=== PATIENT | female | born 1955 | race Caucasian/White ===

== ENCOUNTER 2017-11-27 15:12 | Inpatient (IN) | payer SELFPAY ==
[~2017-11-27 15:12] MED LIST: Iopamidol 370 76% 100 ML VIAL ONE; Iopamidol 370 76% 50 ML VIAL FS ONE
[2017-11-27] MEDS ORDERED: Lidocaine 1% (PF) 30 ML VIAL ONE (15:36)
[2017-11-27] MEDS ORDERED: Heparin 10,000 UNITS/1 ML VIAL ONE ×2 (15:36→16:48)
[2017-11-27 15:38] LABS: #Eosinphils 0.1 thou/uL (0.0-0.7); #Lymphocytes 1.7 thou/uL (1.20-3.40); #Monocytes 0.4 thou/uL (0.11-0.59); #Neutrophils 3.5 thou/uL (1.40-6.50); %Basophils 0.5 % (0.0-1.0); %Eosinophils 1.3 % (0.0-10.0); %Lymphocytes 29.7 % (21.0-51.0); %Neutrophils 61.5 % (42.0-75.0); Hemoglobin 12.4 g/dL (12.0-16.0); Mean Corpuscular HGB CONC 35.2 g/dL (32.0-36.0); Mean Corpuscular Volume 93.9 fL (78.0-98.0); Mean Platelet Volume 7.6 fL (7.4-10.4); Platelet Count 247 thou/uL (130-400); RBC Distribution Width 13.2 % (11.5-14.5); Red Blood Cell (RBC) Count 3.77 mill/uL (4.20-5.40); White Blood Cell (WBC) Count 5.7 thou/uL (4.8-10.8)
--- NOTE | 2017-11-27 15:46 | RAD ---
PORTABLE CHEST: Date: 11/27/17 HISTORY: Chest pain. FINDINGS: Lungs appear clear. No infiltrate or vascular congestion. Heart size upper normal. MediPort catheter appears in adequate position. Overlying defibrillation pads obscure detail. IMPRESSION: No acute process identified. POS: [facility]
[2017-11-27 15:57] LABS: ALT (SGPT) 22 U/L (8-55); AST (SGOT) 20 U/L (5-34); Albumin 4.1 g/dL (3.4-4.8); Alkaline Phosphatase 53 U/L (40-150); Anion Gap 17 mmol/L (10-20); BUN (Urea Nitrogen) 16 mg/dL (9.8-20.1); Bilirubin, Total 0.4 mg/dL (0.2-1.2); Calc. Creatinine Clearance 0 mL/min (70-130); Carbon Dioxide 21 mmol/L (23-31); Chloride 104 mmol/L (98-107); Estimated GFR-MDRD 54; Globulin 3.4 g/dL (2.4-3.5); Glucose 398 mg/dL (80-115); Potassium 4.2 mmol/L (3.5-5.1); Protein, Total 7.5 g/dL (6.0-8.3); Sodium 138 mmol/L (136-145)
[2017-11-27 16:01] LABS: CKMB 3.2 ng/mL (0-6.6); Troponin I 0.267 ng/mL (< 0.028)
[2017-11-27] MEDS ORDERED: Nitroglycerin 100MG/250ML BOT 250 ML ONE (16:08)
[2017-11-27] MEDS ORDERED: Clopidogrel Bisulfate 300 MG TAB ONE (16:24)
[2017-11-27] MEDS ORDERED: Fentanyl 100 MCG/2 ML VIAL ONE (16:25)
[2017-11-27] MEDS ORDERED: Sodium Chloride 0.9% 1,000 ML BAG ONE (17:00)
[2017-11-27] MEDS ORDERED: Metoprolol Tartrate 5 MG/5 ML VIAL ONE (17:00)
[2017-11-27] MEDS ORDERED: Heparin 10,000 UNITS/ 10 ML VIAL ONE (17:00)
[2017-11-27] MEDS ORDERED: Nitroglycerin 0.4 MG TAB (25 Tab Bottle) ONE (17:00)
[2017-11-27] MEDS ORDERED: Zolpidem Tartrate 5 MG TAB PO PRN (17:04)
[2017-11-27] MEDS ORDERED: Nitroglycerin 0.4 MG TAB (25 Tab Bottle) SL PRN (17:04)
[2017-11-27] MEDS ORDERED: Sodium Chloride 0.9% 1,000 ML IV SCH (17:15)
[2017-11-27] MEDS ORDERED: Morphine 4 MG/ML VIAL ONE (17:20)
--- NOTE | 2017-11-27 17:52 | RAD ---
ONE VIEW CHEST: 11/27/17 HISTORY: Status post interventional cardiology. COMPARISON: None. FINDINGS: Portable supine chest demonstrates a left sided Mediport catheter with the distal tip projecting over the superior vena cava. Normal cardiac silhouette. Lungs are clear of any masses or consolidation. N o pleural effusion. No pneumothorax on the supine projection. IMPRESSION: No acute cardiopulmonary process. POS: [facility]
[2017-11-27 20:12] VITALS: BMI 37.5
[2017-11-27] MEDS: Carvedilol 6.25 MG TAB PO SCH (20:22)
[2017-11-27 21:46] LABS: CKMB 16.1 ng/mL (0-6.6); Troponin I 1.488 ng/mL (< 0.028)
--- NOTE | 2017-11-27 23:21 | CCL ---
INDICATION: Inferior STEMI. PROCEDURE: 1. Left heart catheterization. 2. Selective coronary arteriography. 3. Left ventriculography. 4. Stent placement in the proximal and the distal right coronary artery. 5. Intracoronary nitroglycerine. The patient was brought from the emergency room. The right groin was prepped and draped in usual fashion. 1% lidocaine was infiltrated. A 6-Bulgarian sheath placed into the right femoral artery. ACTs were checked during the procedure with the patient given 4000 and an additional 3000 units of heparin to maintain ACT greater than 300. Fentanyl 25 mg given intravenously during the case. A 6- Bulgarian Satnam left 4 was used for left coronary arteriography. A 6-Bulgarian right 4 guide catheter was inserted for right coronary arteriography. It was felt that the right 4 might not provide adequate backup and this was removed and a 6-Bulgarian Satnam right one was inserted. This also did not engage well and the decision was made to go back to the 6-Bulgarian right 4 guide catheter. A floppy choice wire was advanced to the distal right coronary artery. There area was predilated with Emerge 3.0 x 15 mm balloon. After the predilatation, there appeared to be a dissection and then there was total occlusion of the vessel. Rebel 3.0 x 24 mm stent was then positioned and deployed with excellent result with taoism of flow and sealing of the dissection. Attention was then turned to the proximal right coronary artery and Rebel 3.5 x 12 mm stent was positioned and deployed. The decision was made to place bare metal stents since patient would need bypass surgery rather than placing a drug eluting stent as the patient and I had previously discussed. The guide catheter was removed. 6-Bulgarian Satnam angulated pigtail was inserted and pressures were obtained. Left ventriculogram was performed using 30 mL of contrast at 12 mL per second in an NELSON 30 degree projection. Pressure obtained and pigtail was removed. Sheath sutured in place and she was transferred to the PACU. RESULTS: PRESSURES: Aorta 145/77, mean 116, left ventricle 160/10. CORONARY ARTERIOGRAPHY: 1. Left main was normal. 2. The LAD had a 70% long proximal stenosis. 3. The circumflex had a 50% mid stenosis and then a 70% stenosis in the large second obtuse marginal. 4. The right coronary artery had a 70% proximal and a 95% distal stenosis. INTERVENTION RESULTS: The initial distal lesion was 95%. Final lesion was 0%. The initial proximal lesion was 70%. Final lesion was 0%. LEFT VENTRICULOGRAM: There was inferior akinesis with ejection fraction of 35-40%. IMPRESSION: 1. Three-vessel coronary artery disease. 2. Successful bare metal stent placement in the proximal and distal right coronary artery. 3. Moderate left ventricular dysfunction. MTDD
[2017-11-28 04:07] LABS: ALT (SGPT) 20 U/L (8-55); AST (SGOT) 29 U/L (5-34); Albumin 3.5 g/dL (3.4-4.8); Alkaline Phosphatase 43 U/L (40-150); Anion Gap 14 mmol/L (10-20); BUN (Urea Nitrogen) 14 mg/dL (9.8-20.1); Bilirubin, Total 0.2 mg/dL (0.2-1.2); Calc. Creatinine Clearance 115 mL/min (70-130); Calcium 8.3 mg/dL (7.8-10.44); Carbon Dioxide 20 mmol/L (23-31); Cardiac Risk 3.7 (Less than 4.5); Chloride 109 mmol/L (98-107); Cholesterol 236 mg/dl (< 200 Desired); Estimated GFR-MDRD 75; Globulin 2.8 g/dL (2.4-3.5); Glucose 302 mg/dL (80-115); HDL Cholesterol 64 mg/dL (>60 Neg Risk); LDL Cholesterol, Calculated 128 mg/dL; Potassium 3.9 mmol/L (3.5-5.1); Protein, Total 6.3 g/dL (6.0-8.3); Sodium 139 mmol/L (136-145); Triglycerides 219 mg/dL (Less than 150)
[2017-11-28 04:16] LABS: CKMB 24.8 ng/mL (0-6.6)
[2017-11-28 04:45] LABS: #Basophils 0.1 thou/uL (0.0-0.2); #Eosinphils 0.1 thou/uL (0.0-0.7); #Lymphocytes 1.1 thou/uL (1.20-3.40); #Monocytes 0.3 thou/uL (0.11-0.59); #Neutrophils 3.2 thou/uL (1.40-6.50); %Basophils 1.4 % (0.0-1.0); %Eosinophils 1.2 % (0.0-10.0); %Lymphocytes 23.7 % (21.0-51.0); %Monocytes 6.3 % (0.0-10.0); %Neutrophils 67.5 % (42.0-75.0); Hemoglobin 10.8 g/dL (12.0-16.0); Mean Corpuscular Hemoglobin 32.2 pg (27.0-31.0); Mean Corpuscular Volume 94.7 fL (78.0-98.0); Mean Platelet Volume 7.5 fL (7.4-10.4); Platelet Count 219 thou/uL (130-400); RBC Distribution Width 13.2 % (11.5-14.5); Red Blood Cell (RBC) Count 3.36 mill/uL (4.20-5.40); White Blood Cell (WBC) Count 4.8 thou/uL (4.8-10.8)
[2017-11-28] MEDS ORDERED: Dextrose 50% Abboject 50 ML SYRINGE IVP PRN (06:41)
[2017-11-28] MEDS ORDERED: Dextrose 5% in Water 1,000 ML IV PRN (06:41)
--- NOTE | 2017-11-28 07:09 | HP ---
DATE OF CONSULTATION: 11/27/2017 HISTORY OF PRESENT ILLNESS: Keke Patel is a 62-year-old white female, who denies any previous cardiac problems. She has undergone Cardiolites here at [place] in 04/2003 and 12/2009 that were normal. Over the last 3 or 4 days, she states she has been having increasing episodes of chest discomfort. Today, she had an episode approximately 30 minutes before arriving to the emergency room, which she stated was much more severe in nature and did not resolve. She had mild shortness of breath, no nausea or vomiting or diaphoresis. PAST MEDICAL HISTORY: Hypertension, diabetes, and hypercholesterolemia. MEDICATIONS: Unknown at this time. ALLERGIES: CELEBREX causes elevation of liver function test. 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 SOCIAL HISTORY: She smoked 1/2 to 3/4 packs per day, but stopped 1 month ago. She rarely drinks. FAMILY HISTORY: Her father was Imtiaz Ceja that I took care with CABG as well as stent placement and defibrillator. Also, her brother has had CABG. REVIEW OF SYSTEMS: A 12-point review of systems otherwise unremarkable. PHYSICAL EXAMINATION: VITAL SIGNS: Blood pressure 160/92, pulse of 90. HEENT: PERRL. NECK: Supple. CHEST: Clear. CARDIAC: S1, S2 normal, without any S3, S4 or murmurs. Carotid upstrokes are normal without bruits. ABDOMEN: Normal bowel sounds, without tenderness, organomegaly. The abdomen is obese. EXTREMITIES: Revealed no clubbing, cyanosis or edema. NEUROLOGIC: Grossly intact. SKIN: Warm and dry. LABORATORY DATA AND IMAGING: EKG revealed [address]-segment elevation in II, III and F along with reciprocal changes in 1 and aVL. Hemoglobin 12.4, hematocrit 35.4, white count 5700, platelets 247,000. No other blood work is available. IMPRESSION: 1. Acute inferior ST-segment elevation myocardial infarction. 2. Acute coronary syndrome over the last 3-4 days. 3. Hypertension. 4. Diabetes. 5. Hypercholesterolemia. 6. Smoker until 1 month ago. 7. Positive family history. PLAN: The situation was discussed with the patient. It was recommended that she undergo an emergent catheterization. Risks of this were discussed including , myocardial infarction, dye reaction, vascular injury, CVA, transfusion, limb loss, renal loss, etc. Risks of stent placement were discussed including , myocardial infarction, emergent CABG, restenosis, stent thrombosis, vessel perforation, etc. She denies any other gastrointestinal bleeding when she had squamous cell carcinoma of the anus. She denies any history of stroke and does not have any upcoming surgical procedures. A drug-eluting stent will be placed if needed. LESLYE
[2017-11-28] MEDS: Clopidogrel Bisulfate 75 MG TAB PO SCH (10:16)
[2017-11-28] MEDS: Carvedilol 6.25 MG TAB PO SCH ×2 (10:20→20:20)
[2017-11-28] MEDS: Lisinopril 2.5 MG TAB PO SCH (10:38)
[2017-11-28 12:21] LABS: Critical Call CKMBM RESULT DECREASING; Critical Call Chem Troponin I RESULT DECREASING
--- NOTE | 2017-11-28 15:14 | PDOC.PN ---
- Subjective Encounter Start Date: 11/28/17 Encounter Start Time: 15:13 Subjective: pt seen and examined. S/P Cath w RCA stenting X2. -: IM team consulted for medical management -: denies nay CP/SOB/edema.no N/V/D - Objective MAR Reviewed: Yes Vital Signs & Weight: Vital Signs (12 hours) Temp Pulse Pulse Pulse Resp BP BP 11/28/17 10:42 77 19 11/28/17 10:38 118/64 11/28/17 10:25 74 69 118/64 11/28/17 10:20 118/64 11/28/17 09:00 98.5 F 11/28/17 08:00 98.2 F 67 22 H 11/28/17 04:00 98.2 F BP Pulse Ox Pulse Ox 11/28/17 10:42 99 11/28/17 10:38 11/28/17 10:25 122/58 L 99 11/28/17 10:20 11/28/17 09:00 11/28/17 08:00 98 11/28/17 04:00 Most Recent Monitor Data Heart Rate from ECG 63 NIBP 118/64 NIBP BP-Mean 89 Respiration from ECG 21 SpO2 100 I&O: 11/27/17 11/28/17 11/29/17 06:59 06:59 06:59 Intake Total 1588 850 Output Total 1150 300 Balance 438 550 Result Diagrams: 11/28/17 04:31 11/28/17 03:36 Additional Labs: Laboratory Tests 11/27/17 11/27/17 11/28/17 15:33 21:00 03:36 Troponin I 0.267 H 1.488 H* Triglycerides 219 H Cholesterol 236 H LDL Cholesterol, Calc 128 HDL Cholesterol 64 11/28/17 03:36 Troponin I 3.160 H* Triglycerides Cholesterol LDL Cholesterol, Calc HDL Cholesterol labs reviewed Phys Exam - Physical Examination Constitutional: NAD HEENT: PERRLA, moist MMs, sclera anicteric, oral pharynx no lesions Neck: no nodes, no JVD, supple, full ROM Respiratory: no wheezing, no rales, no rhonchi, clear to auscultation bilateral Cardiovascular: RRR, no significant murmur, no rub Gastrointestinal: soft, non-tender, no distention, positive bowel sounds Musculoskeletal: no edema, pulses present Neurological: non-focal, normal sensation, moves all 4 limbs Psychiatric: normal affect, A&O x 3 Skin: no rash Dx/Plan (1) STEMI (ST elevation myocardial infarction) Status: Acute Comment: s/p PCI to RCA (2) DM2 (diabetes mellitus, type 2) Status: Acute (3) HTN (hypertension) Code(s): I10 - ESSENTIAL (PRIMARY) HYPERTENSION Status: Acute (4) HLD (hyperlipidemia) Code(s): E78.5 - HYPERLIPIDEMIA, UNSPECIFIED Status: Acute (5) Tobacco abuse Code(s): Z72.0 - TOBACCO USE Status: Acute (6) Tobacco abuse counseling Code(s): Z71.6 - TOBACCO ABUSE COUNSELING Status: Acute - Plan DVT proph w/SCDs restart Glucotrol.hold metformin to avoid ZACH as Contrast given -: ISS w accuchecks. -: cardio prudent meds.cont ASA,statin,SAVANNA-I,BB.plavix -: CTVS eval for possible CABG at a later date -: Will follow. * . Review of Systems - Review of Systems Constitutional: negative: fever, chills, sweats, weakness, malaise, other ENT: negative: Ear Pain, Ear Discharge, Nose Pain, Nose Discharge, Nose Congestion, Mouth Pain, Mouth Swelling, Throat Pain, Throat Swelling, Other Respiratory: negative: Cough, Dry, Shortness of Breath, Hemoptysis, SOB with Excertion, Pleuritic Pain, Sputum, Wheezing Cardiovascular: negative: chest pain, palpitations, orthopnea, paroxysmal nocturnal dyspnea, edema, light headedness, other Gastrointestinal: negative: Nausea, Vomiting, Abdominal Pain, Diarrhea, Constipation, Melena, Hematochezia, Other Genitourinary: negative: Dysuria, Frequency, Incontinence, Hematuria, Retention , Other Musculoskeletal: negative: Neck Pain, Shoulder Pain, Arm Pain, Back Pain, Hand Pain, Leg Pain, Foot Pain, Other Neurological: negative: Weakness, Numbness, Incoordination, Change in Speech, Confusion, Seizures, Other - Medications/Allergies Allergies/Adverse Reactions: Allergies Allergy/AdvReac Type Severity Reaction Status Date / Time celecoxib [From Celebrex] Allergy Verified 11/27/17 17:23 Medications: Current Medications Albuterol/Ipratropium (Duoneb) 3 ml NEB [id number] GILBERT Aspirin (Aspirin Chewable) 81 mg PO DAILY [facility] Last Admin: 11/28/17 10:16 Dose: 81 mg Atorvastatin Calcium (Lipitor) 40 mg PO HS [facility] Carvedilol (Coreg) 6.25 mg PO BID [facility] Last Admin: 11/28/17 10:20 Dose: 6.25 mg Clopidogrel Bisulfate (Plavix) 75 mg PO DAILY [facility] Last Admin: 11/28/17 10:16 Dose: 75 mg Dextrose/Water (Dextrose 50%) 25 gm IVP PRN PRN PRN Reason: HYPOGLYCEMIA PROTOCOL Fish Oil (Fish Oil) 1,000 mg PO HS [facility] Glipizide (Glucotrol) 10 mg PO BID-AC [facility] Glucagon (Glucagon) 1 mg IM PRN PRN PRN Reason: HYPOGLYCEMIA PROTOCOL Dextrose/Water (D5w) 1,000 mls @ 0 mls/hr IV INF PRN; As Directed PRN Reason: HYPOGLYCEMIA PROTOCOL Insulin Human Lispro (Humalog) 0 units SC .MODERATE SLIDING SC PRN; Protocol PRN Reason: MODERATE SLIDING SCALE Lisinopril (Zestril) 2.5 mg PO DAILY [facility] Last Admin: 11/28/17 10:38 Dose: Not Given Morphine Sulfate (Morphine) 2 mg SLOW IVP Q4H PRN PRN Reason: Moderate Pain (4-6) Morphine Sulfate (Morphine Sulfate) 4 mg SLOW IVP Q4H PRN PRN Reason: Severe Pain (7-10) Nitroglycerin (Nitrostat) 0.4 mg SL Q5MIN PRN PRN Reason: Chest Pain Zolpidem Tartrate (Ambien) 5 mg PO HSPRN PRN PRN Reason: Insomnia
--- NOTE | 2017-11-28 16:17 | CON ---
DATE OF CONSULTATION: 11/28/2017 DATE OF ADMISSION: 11/27/2017 REASON FOR CONSULTATION: Evaluate the patient for coronary artery bypass grafting. HISTORY OF PRESENT ILLNESS: Ms. Patel is a 62-year-old woman, who came in with chest pain. The pa in became much more severe than her recent 3 days of chest pain and did not resolve. She had ST elev ation in the inferior leads and was taken to the laboratory monitor. She underwent cardiac catheterization rev ealing near occlusion of her right coronary artery. She had 2 separate bare metal stents placed and will be loaded with Plavix will be on Plavix for a month. She states that she has had some pressure and shortness of breath over the last couple of months. Th is progressed to pain over the last 3-4 days. It then progressed to severe pain that led to her admi ssion. PAST MEDICAL HISTORY: 1. Hypertension. 2. Diabetes mellitus. 3. Hypercholesterolemia. 4. Obesity. PAST SURGICAL HISTORY: 1. Tubal ligation. 2. Cholecystectomy. 3. Tonsillectomy. 4. Removal of squamous carcinoma of the anus followed by radiation and chemotherapy in 2010. SOCIAL HISTORY: She smoked a pack of cigarettes a day up until a month ago, when she began to have t he chest symptoms and she stopped smoking. She rarely drinks alcohol. REVIEW OF SYSTEMS: Ten-point review of systems is performed and is negative except as above. PHYSICAL EXAMINATION: GENERAL: This is a moderately obese woman, resting comfortably without any symptomatology currently in the Intensive Care Unit. VITAL SIGNS: Temperature is 98.5, pulse is 74 and regular, blood pressure is 118/64, saturations are 99% on room air, height 5 feet 3 inches, weight is 212 pounds. HEENT: Sclerae nonicteric. Pupils equal and round bilaterally. NECK: Supple, without carotid bruit. CHEST: Clear bilaterally. HEART: Rhythm is regular, without murmur. ABDOMEN: Soft and nontender. EXTREMITIES: No edema. She has moderately obese legs. LABORATORY DATA: Of note, hemoglobin is 10.8, platelet count is 219,000. Peak troponin is 3.1, peak CK-MB is 24.8, creatinine is 0.78, potassium is 3.9. ASSESSMENT AND PLAN: This is a 62-year-old woman, who underwent acute rescue treatment from a ST-jose vation myocardial infarction with stenting of her right coronary artery in 2 separate locations with a bare metal stent. She will be on Plavix for a month before she can stop the Plavix. I have discus sed coronary artery bypass grafting to her LAD, diagonal, and OM, and she is agreeable once she is of f Plavix. At that point, we will get her back to the office to discuss surgery in detail and planned surgical intervention.
[2017-11-28] MEDS: glipiZIDE 10 MG TAB PO SCH (16:36)
[2017-11-28] MEDS ORDERED: Atorvastatin Calcium 10 MG TAB PO SCH (17:00)
[2017-11-28] MEDS: HumaLOG 300 UNITS/3 ML VIAL SC PRN ×2 (17:40→20:20)
[2017-11-28] MEDS: Atorvastatin Calcium 40 MG TAB PO SCH (20:20)
[2017-11-28] MEDS: Fish Oil 1,000 MG CAP PO SCH (20:20)
[2017-11-29] MEDS: glipiZIDE 10 MG TAB PO SCH ×2 (07:59→16:06)
[2017-11-29] MEDS: Carvedilol 6.25 MG TAB PO SCH ×2 (09:38→19:29)
[2017-11-29] MEDS: Clopidogrel Bisulfate 75 MG TAB PO SCH (09:39)
[2017-11-29] MEDS: Lisinopril 2.5 MG TAB PO SCH (09:39)
[2017-11-29] MEDS: HumaLOG 300 UNITS/3 ML VIAL SC PRN (12:11)
--- NOTE | 2017-11-29 14:23 | PDOC.PN ---
- Subjective Encounter Start Date: 11/29/17 Encounter Start Time: 14:21 Subjective: feels much better. no chest pain/SOB/palpitations -: more energetic - Objective MAR Reviewed: Yes Vital Signs & Weight: Vital Signs (12 hours) Temp Pulse Pulse Pulse Resp BP BP 11/29/17 12:15 98.4 F 65 16 11/29/17 09:40 87 79 144/77 H 136/84 11/29/17 09:12 76 12 11/29/17 07:50 97.5 F L 76 18 11/29/17 04:00 98.0 F 71 16 BP BP Pulse Ox Pulse Ox Pulse Ox 11/29/17 12:15 132/71 97 11/29/17 09:40 97 96 11/29/17 09:12 11/29/17 07:50 136/74 96 11/29/17 04:00 130/63 95 Weight Weight 207 lb 9.6 oz Most Recent Monitor Data Heart Rate from ECG 63 NIBP 118/64 NIBP BP-Mean 89 Respiration from ECG 21 SpO2 100 I&O: 11/28/17 11/29/17 11/30/17 06:59 06:59 06:59 Intake Total 1588 1100 Output Total 1150 300 Balance 438 800 Result Diagrams: 11/28/17 04:31 11/28/17 03:36 Additional Labs: Accuchecks 11/29/17 11/29/17 11/28/17 11:16 05:16 20:13 POC Glucose 223 H 110 173 H 11/28/17 16:31 POC Glucose 309 H labs reviewed Phys Exam - Physical Examination Constitutional: NAD HEENT: PERRLA, moist MMs, sclera anicteric, oral pharynx no lesions Neck: no nodes, no JVD, supple, full ROM Respiratory: no wheezing, no rales, no rhonchi, clear to auscultation bilateral Cardiovascular: RRR, no significant murmur, no rub Gastrointestinal: soft, non-tender, no distention, positive bowel sounds Musculoskeletal: no edema, pulses present Neurological: non-focal, normal sensation, moves all 4 limbs Psychiatric: normal affect, A&O x 3 Skin: no rash Dx/Plan (1) STEMI (ST elevation myocardial infarction) Status: Acute Comment: s/p PCI to RCA (2) DM2 (diabetes mellitus, type 2) Status: Acute (3) HTN (hypertension) Code(s): I10 - ESSENTIAL (PRIMARY) HYPERTENSION Status: Acute (4) HLD (hyperlipidemia) Code(s): E78.5 - HYPERLIPIDEMIA, UNSPECIFIED Status: Acute (5) Tobacco abuse Code(s): Z72.0 - TOBACCO USE Status: Acute (6) Tobacco abuse counseling Code(s): Z71.6 - TOBACCO ABUSE COUNSELING Status: Acute (7) CAD (coronary artery disease) Code(s): I25.10 - ATHSCL HEART DISEASE OF [place] CORONARY ARTERY W/O ANG PCTRS Status: Chronic Qualifiers: Coronary Disease-Associated Artery/Lesion type: [place] artery Comment: 3 v disease - Plan out of bed/ambulate, DVT proph w/SCDs blood sugar and BP under control.cont home meds,ISS and accuchecks -: all Qs answered regarding DC meds.educated about Good Rx coupons -: CM consult for SS application -: OK to DC form IM stand point. -: OP CTS eval for CABG.cont Plavix,ASA,BB,statin,Catherine-i * . Review of Systems - Review of Systems Constitutional: negative: fever, chills, sweats, weakness, malaise, other ENT: negative: Ear Pain, Ear Discharge, Nose Pain, Nose Discharge, Nose Congestion, Mouth Pain, Mouth Swelling, Throat Pain, Throat Swelling, Other Respiratory: negative: Cough, Dry, Shortness of Breath, Hemoptysis, SOB with Excertion, Pleuritic Pain, Sputum, Wheezing Cardiovascular: negative: chest pain, palpitations, orthopnea, paroxysmal nocturnal dyspnea, edema, light headedness, other Gastrointestinal: negative: Nausea, Vomiting, Abdominal Pain, Diarrhea, Constipation, Melena, Hematochezia, Other Genitourinary: negative: Dysuria, Frequency, Incontinence, Hematuria, Retention , Other Musculoskeletal: negative: Neck Pain, Shoulder Pain, Arm Pain, Back Pain, Hand Pain, Leg Pain, Foot Pain, Other Neurological: negative: Weakness, Numbness, Incoordination, Change in Speech, Confusion, Seizures, Other - Medications/Allergies Allergies/Adverse Reactions: Allergies Allergy/AdvReac Type Severity Reaction Status Date / Time celecoxib [From Celebrex] Allergy Verified 11/27/17 17:23 Medications: Current Medications Albuterol/Ipratropium (Duoneb) 3 ml NEB [id number] [facility] Last Admin: 11/29/17 09:12 Dose: 3 ml Aspirin (Aspirin Chewable) 81 mg PO DAILY [facility] Last Admin: 11/29/17 09:38 Dose: 81 mg Atorvastatin Calcium (Lipitor) 40 mg PO HS [facility] Last Admin: 11/28/17 20:20 Dose: 40 mg Carvedilol (Coreg) 6.25 mg PO BID [facility] Last Admin: 11/29/17 09:38 Dose: 6.25 mg Clopidogrel Bisulfate (Plavix) 75 mg PO DAILY [facility] Last Admin: 11/29/17 09:39 Dose: 75 mg Dextrose/Water (Dextrose 50%) 25 gm IVP PRN PRN PRN Reason: HYPOGLYCEMIA PROTOCOL Fish Oil (Fish Oil) 1,000 mg PO HS [facility] Last Admin: 11/28/17 20:20 Dose: 1,000 mg Glipizide (Glucotrol) 10 mg PO BID-AC [facility] Last Admin: 11/29/17 07:59 Dose: 10 mg Glucagon (Glucagon) 1 mg IM PRN PRN PRN Reason: HYPOGLYCEMIA PROTOCOL Dextrose/Water (D5w) 1,000 mls @ 0 mls/hr IV INF PRN; As Directed PRN Reason: HYPOGLYCEMIA PROTOCOL Insulin Human Lispro (Humalog) 0 units SC .MODERATE SLIDING SC PRN; Protocol PRN Reason: MODERATE SLIDING SCALE Last Admin: 11/29/17 12:11 Dose: 4 unit Lisinopril (Zestril) 2.5 mg PO DAILY [facility] Last Admin: 11/29/17 09:39 Dose: 2.5 mg Morphine Sulfate (Morphine) 2 mg SLOW IVP Q4H PRN PRN Reason: Moderate Pain (4-6) Morphine Sulfate (Morphine Sulfate) 4 mg SLOW IVP Q4H PRN PRN Reason: Severe Pain (7-10) Nitroglycerin (Nitrostat) 0.4 mg SL Q5MIN PRN PRN Reason: Chest Pain Zolpidem Tartrate (Ambien) 5 mg PO HSPRN PRN PRN Reason: Insomnia
[2017-11-29] MEDS ORDERED: Acetaminophen 500 MG TAB PO PRN (18:11)
[2017-11-29] MEDS: Lisinopril 5 MG TAB PO SCH (19:28)
[2017-11-29] MEDS: Atorvastatin Calcium 40 MG TAB PO SCH (19:28)
[2017-11-29] MEDS: Fish Oil 1,000 MG CAP PO SCH (19:29)
[2017-11-30] MEDS: glipiZIDE 10 MG TAB PO SCH ×2 (08:01→15:44)
[2017-11-30] MEDS: Carvedilol 6.25 MG TAB PO SCH ×2 (08:01→15:44)
[2017-11-30] MEDS: Lisinopril 5 MG TAB PO SCH (08:01)
[2017-11-30] MEDS: Clopidogrel Bisulfate 75 MG TAB PO SCH (08:01)
[2017-11-30] MEDS ORDERED: Amoxicillin/Potassium Clav 875 MG TAB PO SCH ×4 (11:30→21:00)
[2017-11-30] MEDS: HumaLOG 300 UNITS/3 ML VIAL SC PRN (11:44)
--- NOTE | 2017-11-30 13:08 | PDOC.PN ---
- Subjective Encounter Start Date: 11/30/17 Encounter Start Time: 13:06 Subjective: feels well. walked in hallways w/o chest pain/SOB -: c/o a smal painful swelling in the roof of mouth X2 weeks. -: reports [place] pain and size of swelling is less - Objective MAR Reviewed: Yes Vital Signs & Weight: Vital Signs (12 hours) Temp Pulse Pulse Pulse Resp BP BP 11/30/17 11:48 99.1 F 70 18 11/30/17 09:34 81 72 142/67 H 116/55 L 11/30/17 07:30 99.1 F 71 18 11/30/17 06:50 70 14 11/30/17 06:39 99.2 F 72 14 BP BP Pulse Ox Pulse Ox Pulse Ox 11/30/17 11:48 106/57 L 94 L 11/30/17 09:34 96 95 11/30/17 07:30 113/62 97 11/30/17 06:50 98 11/30/17 06:39 112/56 L 94 L Weight Weight 204 lb Most Recent Monitor Data Heart Rate from ECG 63 NIBP 118/64 NIBP BP-Mean 89 Respiration from ECG 21 SpO2 100 I&O: 11/29/17 11/30/17 12/01/17 06:59 06:59 06:59 Intake Total 1100 1740 Output Total 300 Balance 800 1740 Result Diagrams: 11/28/17 04:31 11/28/17 03:36 Additional Labs: Accuchecks 11/30/17 11/29/17 11/29/17 06:13 21:01 16:59 POC Glucose 103 175 H 98 labs reviewed Phys Exam - Physical Examination Constitutional: NAD HEENT: PERRLA, moist MMs, sclera anicteric, oral pharynx no lesions, 2+ tonsils (teeth decay noticed) small palpable,non tender,non erythematous swelling R hard palate. Neck: no nodes, no JVD, supple, full ROM Respiratory: no wheezing, no rales, no rhonchi, clear to auscultation bilateral Cardiovascular: RRR, no significant murmur, no rub Gastrointestinal: soft, non-tender, no distention, positive bowel sounds Musculoskeletal: no edema, pulses present Neurological: non-focal, normal sensation, moves all 4 limbs Psychiatric: normal affect, A&O x 3 Skin: no rash Dx/Plan (1) STEMI (ST elevation myocardial infarction) Status: Acute Comment: s/p PCI to RCA (2) DM2 (diabetes mellitus, type 2) Status: Acute (3) HTN (hypertension) Code(s): I10 - ESSENTIAL (PRIMARY) HYPERTENSION Status: Acute (4) HLD (hyperlipidemia) Code(s): E78.5 - HYPERLIPIDEMIA, UNSPECIFIED Status: Acute (5) Tobacco abuse Code(s): Z72.0 - TOBACCO USE Status: Acute (6) Tobacco abuse counseling Code(s): Z71.6 - TOBACCO ABUSE COUNSELING Status: Acute (7) CAD (coronary artery disease) Code(s): I25.10 - ATHSCL HEART DISEASE OF [place] CORONARY ARTERY W/O ANG PCTRS Status: Chronic Qualifiers: Coronary Disease-Associated Artery/Lesion type: [place] artery Comment: 3 v disease - Plan incentive spirometry, out of bed/ambulate, DVT proph w/SCDs suspect tooth abscess given improvement in pain and size. -: add empiric ABx -ugmentin X7 days.OP f/u w ENT -: cont cardio prudent meds.on ASA,statin,SAVANNA-I,BB,plavix -: DC when ok w primary team.BP slightly low -monitor -: will follow if still here tomorrow * . Review of Systems - Review of Systems Constitutional: negative: fever, chills, sweats, weakness, malaise, other Respiratory: negative: Cough, Dry, Shortness of Breath, Hemoptysis, SOB with Excertion, Pleuritic Pain, Sputum, Wheezing Cardiovascular: negative: chest pain, palpitations, orthopnea, paroxysmal nocturnal dyspnea, edema, light headedness, other Gastrointestinal: negative: Nausea, Vomiting, Abdominal Pain, Diarrhea, Constipation, Melena, Hematochezia, Other Genitourinary: negative: Dysuria, Frequency, Incontinence, Hematuria, Retention , Other Musculoskeletal: negative: Neck Pain, Shoulder Pain, Arm Pain, Back Pain, Hand Pain, Leg Pain, Foot Pain, Other Skin: negative: Rash, Lesions, Brian, Bruising, Other Neurological: negative: Weakness, Numbness, Incoordination, Change in Speech, Confusion, Seizures, Other - Medications/Allergies Allergies/Adverse Reactions: Allergies Allergy/AdvReac Type Severity Reaction Status Date / Time celecoxib [From Celebrex] Allergy Verified 11/27/17 17:23 Medications: Current Medications Acetaminophen (Tylenol) 500 mg PO Q6H PRN PRN Reason: Headache/Fever or Pain Last Admin: 11/29/17 18:28 Dose: 500 mg Albuterol/Ipratropium (Duoneb) 3 ml NEB Q4H PRN PRN Reason: SOB Amoxicillin/Clavulanate Potassium (Augmentin) 875 mg PO Q12HR [facility] Amoxicillin/Clavulanate Potassium (Augmentin) 875 mg PO 1130 [facility] Stop: 11/30/17 13:30 Last Admin: 11/30/17 11:45 Dose: 875 mg Aspirin (Aspirin Chewable) 81 mg PO DAILY [facility] Last Admin: 11/30/17 08:01 Dose: 81 mg Atorvastatin Calcium (Lipitor) 40 mg PO HS [facility] Last Admin: 11/29/17 19:28 Dose: 40 mg Carvedilol (Coreg) 6.25 mg PO TID [facility] Last Admin: 11/30/17 08:01 Dose: 6.25 mg Clopidogrel Bisulfate (Plavix) 75 mg PO DAILY [facility] Last Admin: 11/30/17 08:01 Dose: 75 mg Dextrose/Water (Dextrose 50%) 25 gm IVP PRN PRN PRN Reason: HYPOGLYCEMIA PROTOCOL Fish Oil (Fish Oil) 1,000 mg PO HS [facility] Last Admin: 11/29/17 19:29 Dose: 1,000 mg Glipizide (Glucotrol) 10 mg PO BID-AC [facility] Last Admin: 11/30/17 08:01 Dose: 10 mg Glucagon (Glucagon) 1 mg IM PRN PRN PRN Reason: HYPOGLYCEMIA PROTOCOL Dextrose/Water (D5w) 1,000 mls @ 0 mls/hr IV INF PRN; As Directed PRN Reason: HYPOGLYCEMIA PROTOCOL Insulin Human Lispro (Humalog) 0 units SC .MODERATE SLIDING SC PRN; Protocol PRN Reason: MODERATE SLIDING SCALE Last Admin: 11/30/17 11:44 Dose: 2 unit Lisinopril (Zestril) 5 mg PO BID [facility] Last Admin: 11/30/17 08:01 Dose: 5 mg Morphine Sulfate (Morphine) 2 mg SLOW IVP Q4H PRN PRN Reason: Moderate Pain (4-6) Morphine Sulfate (Morphine Sulfate) 4 mg SLOW IVP Q4H PRN PRN Reason: Severe Pain (7-10) Nitroglycerin (Nitrostat) 0.4 mg SL Q5MIN PRN PRN Reason: Chest Pain Zolpidem Tartrate (Ambien) 5 mg PO HSPRN PRN PRN Reason: Insomnia
[2017-11-30 15:40] VITALS: BP 164/72; TEMP 98.8
[2017-12-01] MEDS ORDERED: Amoxicillin/Potassium Clav 875 MG TAB PO SCH (09:00)
--- NOTE | 2017-12-01 13:06 | DIS ---
DATE OF ADMISSION: 11/27/2017 DATE OF DISCHARGE: 12/01/2017 Please note that this discharge is done for Dr. Albert, who has admitted this patient to the [facility]. Internal Medicine team was consulted for medical management and discharge paperwork. CONDITION AT THE TIME OF DISCHARGE: Stable and improved. DISCHARGE DISPOSITION: Home. DISCHARGE DIAGNOSES: 1. ST elevation myocardial infarction status post percutaneous coronary intervention to RCA. 2. Diabetes mellitus type 2. 3. Hypertension. 4. Dyslipidemia. 5. Coronary artery disease, severe three-vessel disease, status post intervention of right coronary artery. 6. Possible tooth infection. DISCHARGE MEDICATIONS: Metformin 1000 mg p.o. b.i.d., glipizide 10 mg p.o. b.i.d., lisinopril 5 mg p .o. b.i.d., fish oil 1000 mg daily, Plavix 75 mg daily, Coreg 6.25 mg p.o. t.i.d., Lipitor 40 mg judi y, aspirin 81 mg daily, Augmentin 875 p.o. b.i.d. for 7 days. INHOUSE CONSULTATION: Cardiovascular Surgery and Internal Medicine team. PROCEDURES DONE IN THE HOSPITAL: Cardiac catheterization with stenting of the RCA x2 with bare metal stent. HISTORY OF PRESENTING ILLNESS/HOSPITAL COURSE: Ms. Patel was admitted under Cardiology services by Dr. Albert for complaints of chest pain and presentation with acute inferior ST elevation CO. She was given emergently taken to cardiac rags laborer where she was found to have severe 3-vessel disease. RCA was stented by Dr. Albert and Internal Medicine team was consulted for medical management. Ca rdiovascular Surgery was consulted by Cardiology for a possible coronary artery bypass graft of the r est of her lesions. Dr. Perkins saw the patient and the plan is to send her home and see her after abo ut a month or so for possible CABG. She needs to be on Plavix for at least a month before she can st op the Plavix for the surgery. The patient did complain of some swelling of the roof of her mouth, which has been getting better for the last 2 weeks. She was found to be have what looks like a tooth abscess which is getting better. She was asymptomatic without any evidence of sepsis or any worsening. She was put on oral antibiot ics, namely Augmentin for this and she has an upcoming appointment with ENT for the same. She was se en and examined on the day of discharge by myself. Please see hospitalist progress note from the dominic e of discharge. Once again, the patient has been cleared by Cardiology for discharge and Internal Medicine team has noemí celis asked to do the discharge as above.
== END 2017-11-30 19:29 | disposition home or self-care (01) | DRG 247 ==
LOC: ERS 15:12 → 2NO 15:56 → ERS 15:56 → CCL 16:16 → CCU 19:01 → 2NO 11-28 11:22
PROVIDERS: ADMIT Internal Medicine Cardiovascular Disease; ATTEND Internal Medicine Cardiovascular Disease
PROC: 027035Z Dilation of Coronary Artery, One Artery with Two Drug-eluting Intraluminal Devices, Percutaneous Approach (ICD-10-PCS; principal; 2017-11-27)
PROC: 4A023N7 Measurement of Cardiac Sampling and Pressure, Left Heart, Percutaneous Approach (ICD-10-PCS; 2017-11-27)
PROC: B2111ZZ Fluoroscopy of Multiple Coronary Arteries using Low Osmolar Contrast (ICD-10-PCS; 2017-11-27)
PROC: B2151ZZ Fluoroscopy of Left Heart using Low Osmolar Contrast (ICD-10-PCS; 2017-11-27)
DX: I21.09 ST elevation (STEMI) myocardial infarction involving other coronary artery of anterior wall (principal); I10 Essential (primary) hypertension; E11.9 Type 2 diabetes mellitus without complications; E78.00 Pure hypercholesterolemia, unspecified; F17.210 Nicotine dependence, cigarettes, uncomplicated; Z90.49 Acquired absence of other specified parts of digestive tract; E78.5 Hyperlipidemia, unspecified; I25.110 Atherosclerotic heart disease of native coronary artery with unstable angina pectoris; E66.9 Obesity, unspecified; Z88.8 Allergy status to other drugs, medicaments and biological substances
CPT/HCPCS: 36415; 36416; 71045; 80053; 80061; 82553; 84484; 85025; 85347; 92928; 93005; 93010; 93458; 93798; 94640; C1725; C1769; C1876; C1887; J1644; J2001; J2270; J3010; J7050; J7620

== ENCOUNTER 2018-01-18 13:30 | Inpatient (IN) | payer OTHER ==
[2018-01-18 14:33] VITALS: BMI 35.9
[2018-01-19] MEDS ORDERED: Fentanyl 250 MCG/5 ML VIAL ONE ×2 (05:53)
[2018-01-19] MEDS ORDERED: Midazolam HCl 2 mg/2 ml Vial ONE (05:54)
[2018-01-19] MEDS ORDERED: CEFAZOLIN/Water 2 GM/20 ML SYRINGE ONE (06:12)
[2018-01-19] MEDS ORDERED: Albumin 5% 500 ML ONE (06:29)
[2018-01-19] MEDS ORDERED: Heparin 10,000 UNITS/1 ML VIAL 30,000 UNITS in Sodium Chloride 0.9% 1,000 ML FS SCH (06:45)
[2018-01-19] MEDS ORDERED: Insulin Regular 300 UNITS/3 ML VIAL ONE (10:46)
[2018-01-19] MEDS ORDERED: Guaifenesin DM 100-10/5 ML UDCUP PO PRN (11:18)
[2018-01-19] MEDS ORDERED: Bisacodyl 5 MG TAB PO PRN (11:18)
[2018-01-19] MEDS ORDERED: HYDROcodone/Acetaminophen 5/325 mg Tablet PO PRN (11:18)
[2018-01-19] MEDS ORDERED: Hetastarch 6% 500 ML 500 ML IVPB PRN (11:18)
[2018-01-19] MEDS ORDERED: Ondansetron HCl/PF 4 MG/2 ML Vial IVP PRN (11:18)
[2018-01-19] MEDS ORDERED: D5 1/2 NS w/20 mEq KCL 1,000 ML IV SCH (11:18)
[2018-01-19] MEDS ORDERED: Promethazine HCl 25 MG/ML VIAL IM PRN (11:18)
[2018-01-19] MEDS ORDERED: Nitroglycerin 50 MG/250 ML BOT 250 ML IVPB PRN (11:18)
[2018-01-19] MEDS ORDERED: Bisacodyl 10 MG SUPP PR PRN (11:18)
[2018-01-19] MEDS ORDERED: Mag-Al 1200 mg/1200 mg/30 ML UDCUP PO PRN (11:18)
[2018-01-19] MEDS ORDERED: Magnesium 2 GM/NS 0.9% 100 ML 2 GM in Premix Bag 1 BAG IVPB SCH (11:18)
[2018-01-19] MEDS ORDERED: Fentanyl 100 MCG/2 ML VIAL SLOW IVP PRN (11:18)
[2018-01-19] MEDS ORDERED: Norepinephrine 8 MG/0.9% NS 250 ML IVPB PRN (11:18)
[2018-01-19] MEDS ORDERED: hydrALAZINE 20 MG/ML VIAL SLOW IVP PRN (11:18)
[2018-01-19] MEDS ORDERED: Post-Op Insulin Drip Protocol IVPB ONE (11:18)
[2018-01-19] MEDS ORDERED: Acetaminophen 325 MG TAB PO PRN (11:18)
[2018-01-19] MEDS ORDERED: Dextrose 5% in Water 1,000 ML IV PRN (11:33)
[2018-01-19] MEDS ORDERED: Dextrose 50% Abboject 50 ML SYRINGE SLOW IVP PRN (11:33)
[2018-01-19 11:44] LABS: Base Excess (BEa) -3.1 mEq/L (-2.0 to +3.0); pH, Arterial 7.35 (7.35-7.45)
[2018-01-19 11:45] LABS: Carboxyhemoglobin (COHb) 0.8 gm% (0.0-3.0); Hemoglobin (Hb) 8.3 g/dL (12.0-16.0)
[2018-01-19 11:46] LABS: Potassium - ABG Lab 3.1 mmol/L (3.70-5.30); Puncture Site A-LINE
--- NOTE | 2018-01-19 11:47 | OP ---
DATE OF PROCEDURE: 01/19/2018 PREOPERATIVE DIAGNOSES: 1. Coronary artery disease. 2. Hyperlipidemia. 3. Hyperlipidemia. 4. Diabetes mellitus. 5. Obesity. 6. Status post myocardial infarction involving the right coronary artery, status post intervention. POSTOPERATIVE DIAGNOSES: 1. Coronary artery disease. 2. Hyperlipidemia. 3. Hyperlipidemia. 4. Diabetes mellitus. 5. Obesity. 6. Status post myocardial infarction involving the right coronary artery, status post intervention. PROCEDURE: Coronary artery bypass grafting x3 - 1) Left internal mammary artery to 1.25 mm mid LAD - good conduit, small target. 2) Reverse saphenous vein 1.25 mm diagonal - good conduit, small target. 3) Reverse saphenous vein to 1.5 mm OM - good conduit, small target. SURGEON: Noe Perkins and Dr. Gildardo Avelar ANESTHESIA: General endotracheal, Dr. Lazaro Ramos. PUMP TIME: 65 minutes. CROSS-CLAMP TIME: 36 minutes. LOW CORE TEMP: 32-degree Celsius. DIGITAL PROGRAM MANAGER: Jl Coyle. DRAINS: 24-Palau[place] chest tubes x2. DRIPS: None. TRANSFUSIONS: None. PROCEDURE IN DETAIL: After consent was obtained, the patient was brought to the operating room, and placed supine was on the operating room table. Appropriate anesthetic monitor was placed and general endotracheal anesthesia induced. Greater saphenous vein was harvested from the left thigh utilizing initially an endoscopic technique and converted to skip incisions. Wounds were irrigated and closed in layers. Median sternotomy was performed. Left internal mammary artery was harvested as a pedicle graft. The patient was systemically heparinized. Distal pedicle was divided and infused with papaverine. Thymic fat and pericardium are ____ electrocautery. Pericardial stay sutures were placed. Aortic and atrial cannulation was performed. After adequate heparinization, retrograde prime was performed. The patient was placed on cardiopulmonary bypass. Distal targets were marked. Aortic cross- clamp was applied and antegrade sanguinous cardioplegic arrest obtained. One liter of antegrade cold cardioplegia was given. Topical cold solution was used. Reversed saphenous vein was anastomosed to the OM in end to side fashion with a running 7-0 Prolene suture. Anastomosis was tested and was hemostatic. Reverse saphenous vein was anastomosed to diagonal in end too side fashion with running 7-0 Prolene suture. Anastomosis was tested and was hemostatic. Mammary artery was brought through a window in the pericardium and anastomosed the LAD in end-to-side fashion with running 7-0 Prolene suture. On release of mammary clamps, good hooding anastomosis and good distal flow. Pedicle secured with interrupted 6-0 Prolene suture. Cross-clamp was removed and partial occluding clamp placed. Saphenous veins were anastomosed individual punch sites with running 6-0 Prolene suture. Partial occluding clamp was removed and grafts deaired. Anastomoses were inspected for hemostasis, which was good. The patient was warmed and weaned from cardiopulmonary bypass. After resumption of sinus rhythm, good ____, temperature greater than 36.5, bypass was discontinued. Transfusions were given. Protamine was administered. Decannulation was performed and pursestring sutures secured. Venous cannulation site was reinforced with 4-0 Prolene. After adequate hemostasis had been obtained, 24-Palauan chest tubes x2 placed in the mediastinum. Sternum was treated with vancomycin paste. Sternum was closed with #7 wire. Sternum was treated with platelet-rich plasma. Wires twisted. Wounds were irrigated, treated with platelet-poor plasma, and closed in multiple layers. Needle, sponge, and instrument counts were all reported as correct at the end of the procedure. The patient was transferred to the Intensive Care Unit in stable, but critical condition. LESLYE
[2018-01-19] MEDS: Ketorolac Tromethamine 30 MG/ML VIAL IVP SCH ×3 (11:49→23:40)
[2018-01-19 11:55] LABS: INR-International Normal Ratio 1.3; PTT 26.8 SEC (22.9-36.1); Prothrombin Time 16.1 SEC (12.0-14.7)
[2018-01-19 11:58] LABS: #Eosinphils 0.1 thou/uL (0.0-0.7); #Lymphocytes 0.8 thou/uL (1.20-3.40); #Monocytes 0.2 thou/uL (0.11-0.59); #Neutrophils 4.6 thou/uL (1.40-6.50); %Basophils 0.2 % (0.0-1.0); %Eosinophils 0.9 % (0.0-10.0); %Lymphocytes 13.4 % (21.0-51.0); %Monocytes 3.4 % (0.0-10.0); %Neutrophils 82.1 % (42.0-75.0); Hemoglobin 8.4 g/dL (12.0-16.0); Mean Corpuscular HGB CONC 35.1 g/dL (32.0-36.0); Mean Corpuscular Hemoglobin 33.1 pg (27.0-31.0); Mean Corpuscular Volume 94.5 fL (78.0-98.0); Mean Platelet Volume 6.5 fL (7.4-10.4); Platelet Count 107 thou/uL (130-400); RBC Distribution Width 12.8 % (11.5-14.5); Red Blood Cell (RBC) Count 2.54 mill/uL (4.20-5.40); White Blood Cell (WBC) Count 5.7 thou/uL (4.8-10.8)
[2018-01-19 12:10] LABS: Anion Gap 9 mmol/L (10-20); BUN (Urea Nitrogen) 19 mg/dL (9.8-20.1); Calc. Creatinine Clearance 121 mL/min (70-130); Calcium 7.4 mg/dL (7.8-10.44); Carbon Dioxide 22 mmol/L (23-31); Chloride 115 mmol/L (98-107); Estimated GFR-MDRD 84; Glucose 114 mg/dL (80-115); Potassium 3.2 mmol/L (3.5-5.1); Sodium 143 mmol/L (136-145)
[2018-01-19] MEDS: Potassium Chloride 20 MEQ/100 ML PREMIX BAG IVPB PRN ×2 (12:49→19:40)
--- NOTE | 2018-01-19 12:51 | RAD ---
CHEST ONE VIEW: History: Heart surgery. Comparison: 11-27-17 FINDINGS: Cardiac silhouette is magnified by projection. Pulmonary vasculature upper limits of normal. Mediasti num is midline with post-operative changes. Tip of an endotracheal catheter overlies the thoracic inl et. Tip of a right subclavian central venous catheter overlies the right atrium. Radiopaque drains ov erlie the mediastinum and left hemithorax. cafeteria monitor leads overlie the chest. IMPRESSION: Post-operative changes mediastinum. Lines and tubes in good position as detailed above. POS: [facility]
[2018-01-19] MEDS: CEFAZOLIN/Water 2 GM/20 ML SYRINGE SLOW IVP SCH ×2 (13:12→21:05)
[2018-01-19] MEDS ORDERED: Succinylcholine Chloride 20 MG/ML 10 ml SYRINGE FS ONE (14:00)
[2018-01-19] MEDS ORDERED: Heparin 5,000 UNITS/ML VIAL ONE (14:00)
[2018-01-19] MEDS ORDERED: Papaverine 60 MG/2 ML VIAL ONE (14:00)
[2018-01-19] MEDS ORDERED: Aminocaproic Acid 5 GM/20 ML VIAL ONE (14:00)
[2018-01-19] MEDS ORDERED: Lidocaine 2% PF 100 mg/5 ml Syringe ONE (14:00)
[2018-01-19] MEDS ORDERED: PROPOFOL 200 MG/20 ML VIAL ONE (14:00)
[2018-01-19] MEDS ORDERED: Lidocaine 1% PF 5 ML VIAL ONE (14:00)
[2018-01-19] MEDS ORDERED: Mannitol 12.5 GM/50 ML ONE (14:00)
[2018-01-19] MEDS ORDERED: Magnesium 5 GM/10 ML VIAL ONE (14:00)
[2018-01-19] MEDS ORDERED: Thrombin 5000 UNITS/5 ML VIAL ONE (14:00)
[2018-01-19] MEDS ORDERED: Heparin 30,000 units/30 ml VIAL ONE (14:00)
[2018-01-19] MEDS ORDERED: Cardioplegic Soln 1,000 ML BAG ONE (14:00)
[2018-01-19] MEDS ORDERED: Calcium Chloride 1 GM/10 ML Abboject SYRINGE ONE (14:00)
[2018-01-19] MEDS ORDERED: Sodium Bicarb 50 MEQ/50 ML VIAL ONE (14:00)
[2018-01-19] MEDS ORDERED: Potassium Chloride 60 MEQ/30 ML VIAL ONE (14:00)
[2018-01-19] MEDS ORDERED: Norepinephrine 4 MG/4 ML VIAL ONE (14:00)
[2018-01-19] MEDS ORDERED: Protamine Sulfate 250 MG/25 ML VIAL ONE (14:00)
[2018-01-19] MEDS: Fentanyl 100 MCG/2 ML VIAL SLOW IVP PRN ×2 (15:51→20:19)
[2018-01-19 16:30] LABS: CO2 Tension 35.7 mmHg (35.0-45.0); pH, Arterial 7.33 (7.35-7.45)
[2018-01-19 16:31] LABS: Actual Bicarbonate (HCO3a) 18.4 mEq/L (22-28); Base Excess (BEa) -6.8 mEq/L (-2.0 to +3.0); Hemoglobin (Hb) 8.9 g/dL (12.0-16.0); O2 Tension (PaO2) 127.4 mmHg (> 80.0); Potassium - ABG Lab 4.4 mmol/L (3.70-5.30)
[2018-01-19 16:32] LABS: Calcium, Ionized 1.1 mmol/L (1.12-1.30); Puncture Site A-LINE
[2018-01-19 16:33] LABS: ALV-art Gradient 77.525 (0-20)
[2018-01-19 17:58] LABS: Hemoglobin 8.6 g/dL (12.0-16.0)
[2018-01-19] MEDS: Famotidine/PF 20 mg/2ml Vial SLOW IVP SCH (20:19)
[2018-01-20] MEDS: Fentanyl 100 MCG/2 ML VIAL SLOW IVP PRN (01:26)
[2018-01-20 03:41] LABS: #Lymphocytes 0.9 thou/uL (1.20-3.40); #Monocytes 0.4 thou/uL (0.11-0.59); #Neutrophils 4.7 thou/uL (1.40-6.50); %Basophils 0.3 % (0.0-1.0); %Eosinophils 0.2 % (0.0-10.0); %Lymphocytes 14.4 % (21.0-51.0); %Monocytes 6.8 % (0.0-10.0); %Neutrophils 78.3 % (42.0-75.0); Hemoglobin 7.2 g/dL (12.0-16.0); Mean Corpuscular HGB CONC 33.6 g/dL (32.0-36.0); Mean Corpuscular Hemoglobin 32.3 pg (27.0-31.0); Mean Corpuscular Volume 96.2 fL (78.0-98.0); Mean Platelet Volume 7.2 fL (7.4-10.4); Platelet Count 133 thou/uL (130-400); RBC Distribution Width 12.8 % (11.5-14.5); Red Blood Cell (RBC) Count 2.24 mill/uL (4.20-5.40); White Blood Cell (WBC) Count 6.1 thou/uL (4.8-10.8)
[2018-01-20 04:02] LABS: Anion Gap 12 mmol/L (10-20); BUN (Urea Nitrogen) 25 mg/dL (9.8-20.1); Calc. Creatinine Clearance 88 mL/min (70-130); Calcium 7.7 mg/dL (7.8-10.44); Carbon Dioxide 22 mmol/L (23-31); Chloride 110 mmol/L (98-107); Cholesterol 84 mg/dl (< 200 Desired); Estimated GFR-MDRD 58; Glucose 112 mg/dL (80-115); HDL Cholesterol 41 mg/dL (>60 Neg Risk); LDL Cholesterol, Calculated 30 mg/dL; Sodium 140 mmol/L (136-145); Triglycerides 66 mg/dL (Less than 150)
[2018-01-20] MEDS: Potassium Chloride 20 MEQ/100 ML PREMIX BAG IVPB PRN (04:40)
[2018-01-20] MEDS: CEFAZOLIN/Water 2 GM/20 ML SYRINGE SLOW IVP SCH (05:02)
[2018-01-20] MEDS: Ketorolac Tromethamine 30 MG/ML VIAL IVP SCH ×4 (05:02→23:58)
[2018-01-20] MEDS: glipiZIDE 10 MG TAB PO SCH ×2 (08:53→16:40)
[2018-01-20] MEDS: Famotidine/PF 20 mg/2ml Vial SLOW IVP SCH (08:53)
[2018-01-20] MEDS ORDERED: Aspirin 325 MG TAB PO SCH (09:00)
[2018-01-20] MEDS ORDERED: Magnesium 2 GM/NS 0.9% 100 ML 2 GM in Premix Bag 1 BAG IVPB SCH (09:00)
--- NOTE | 2018-01-20 09:50 | RAD ---
CHEST 1 VIEW: Date: 01/20/18 COMPARISON: 01/19/18. HISTORY: Status post open heart surgery. FINDINGS: Interval removal of endotracheal tube. Stable right-sided and left-sided central venous catheters. In terval removal of left-sided chest tube. Sternotomy wires are again noted. Stable configuration of th e cardiac silhouette. Minimal blunting of left costophrenic angle likely due to small effusion or ate lectasis. No pneumothorax. IMPRESSION: Findings compatible with recent open heart surgery. POS: [facility]
[2018-01-20] MEDS: HYDROcodone/Acetaminophen 5/325 mg Tablet PO PRN ×2 (10:08→22:02)
[2018-01-20] MEDS: Lisinopril 5 MG TAB PO SCH ×2 (11:09→20:28)
[2018-01-20] MEDS: Carvedilol 6.25 MG TAB PO SCH ×3 (11:09→20:28)
[2018-01-20] MEDS: Insulin Regular 300 UNITS/3 ML VIAL SC PRN ×3 (11:17→20:31)
[2018-01-20] MEDS: FLUoxetine HCl 20 MG CAP PO SCH (20:28)
[2018-01-20] MEDS: Famotidine 20 MG TAB PO SCH (20:28)
[2018-01-20] MEDS: Atorvastatin Calcium 40 MG TAB PO SCH (20:28)
[2018-01-20] MEDS: Fish Oil 1,000 MG CAP PO SCH (20:28)
[2018-01-21] MEDS: Ketorolac Tromethamine 30 MG/ML VIAL IVP SCH ×4 (06:16→23:32)
[2018-01-21] MEDS: Insulin Regular 300 UNITS/3 ML VIAL SC PRN ×4 (06:24→23:59)
[2018-01-21 06:39] LABS: #Eosinphils 0.1 thou/uL (0.0-0.7); #Monocytes 0.5 thou/uL (0.11-0.59); #Neutrophils 4.2 thou/uL (1.40-6.50); %Basophils 0.1 % (0.0-1.0); %Eosinophils 1.4 % (0.0-10.0); %Lymphocytes 17.4 % (21.0-51.0); %Monocytes 7.8 % (0.0-10.0); %Neutrophils 73.3 % (42.0-75.0); Hemoglobin 8.6 g/dL (12.0-16.0); Mean Corpuscular Hemoglobin 32.3 pg (27.0-31.0); Mean Corpuscular Volume 95.2 fL (78.0-98.0); Mean Platelet Volume 7.4 fL (7.4-10.4); Platelet Count 140 thou/uL (130-400); RBC Distribution Width 12.9 % (11.5-14.5); Red Blood Cell (RBC) Count 2.66 mill/uL (4.20-5.40); White Blood Cell (WBC) Count 5.7 thou/uL (4.8-10.8)
[2018-01-21 07:05] LABS: Anion Gap 15 mmol/L (10-20); BUN (Urea Nitrogen) 27 mg/dL (9.8-20.1); Calc. Creatinine Clearance 107 mL/min (70-130); Calcium 7.8 mg/dL (7.8-10.44); Carbon Dioxide 18 mmol/L (23-31); Chloride 107 mmol/L (98-107); Estimated GFR-MDRD 62; Glucose 134 mg/dL (80-115); Potassium 3.9 mmol/L (3.5-5.1); Sodium 136 mmol/L (136-145)
[2018-01-21] MEDS ORDERED: Guaifenesin DM 100-10/5 ML UDCUP PO PRN (07:26)
[2018-01-21] MEDS ORDERED: diphenhydrAMINE 25 MG CAP PO PRN (07:26)
[2018-01-21] MEDS ORDERED: Artificial Tears 18 DROP/0.9 ML EA EYE PRN (07:26)
[2018-01-21] MEDS ORDERED: Nitroglycerin 0.4 MG TAB (25 Tab Bottle) SL PRN (07:26)
[2018-01-21] MEDS ORDERED: Mag-Al 1200 mg/1200 mg/30 ML UDCUP PO PRN (07:26)
[2018-01-21] MEDS ORDERED: Mineral Oil ENEMA PR PRN (07:26)
[2018-01-21] MEDS ORDERED: Bisacodyl 10 MG SUPP PR PRN (07:26)
[2018-01-21] MEDS ORDERED: Bisacodyl 5 MG TAB PO PRN (07:26)
[2018-01-21] MEDS ORDERED: Zolpidem Tartrate 5 MG TAB PO PRN (07:26)
[2018-01-21] MEDS: glipiZIDE 10 MG TAB PO SCH ×2 (07:50→16:06)
[2018-01-21] MEDS: Carvedilol 6.25 MG TAB PO SCH ×3 (08:11→21:57)
[2018-01-21] MEDS: Famotidine 20 MG TAB PO SCH ×2 (08:12→21:59)
[2018-01-21] MEDS: Lisinopril 5 MG TAB PO SCH ×2 (08:12→21:58)
[2018-01-21] MEDS: Aspirin 325 mg Enteric Coated Tablet PO SCH (08:13)
[2018-01-21] MEDS ORDERED: Magnesium 2 GM/NS 0.9% 100 ML 2 GM in Premix Bag 1 BAG IVPB SCH (09:00)
--- NOTE | 2018-01-21 09:49 | RAD ---
PORTABLE AP CHEST RADIOGRAPH: Date: 01-21-18 History: Post open heart surgery. Comparison: 01-20-18 FINDINGS: Left subclavian Mediport catheter is stable in position. Right subclavian central venous catheter is also again seen and stable in position. Post-surgical changes related to CABG are present. There is b lunting of the left lateral costophrenic angle which may be related to left pleural effusion and/or a telectasis. Lungs are otherwise clear. Cardiac silhouette is magnified by projection. Pulmonary vascu lature is within normal limits. Chest is overall stable compared to the prior exam. IMPRESSION: 1. Stable chest with small left pleural effusion and atelectasis. POS: [facility]
[2018-01-21] MEDS: HYDROcodone/Acetaminophen 5/325 mg Tablet PO PRN ×2 (14:03→22:04)
[2018-01-21] MEDS: FLUoxetine HCl 20 MG CAP PO SCH (21:58)
[2018-01-21] MEDS: Atorvastatin Calcium 40 MG TAB PO SCH (21:58)
[2018-01-21] MEDS: Fish Oil 1,000 MG CAP PO SCH (21:59)
[2018-01-22] MEDS ORDERED: Metolazone 5 MG TAB PO SCH (06:30)
[2018-01-22] MEDS: Ketorolac Tromethamine 30 MG/ML VIAL IVP SCH ×2 (06:43→11:48)
[2018-01-22] MEDS: glipiZIDE 10 MG TAB PO SCH ×2 (07:54→17:31)
[2018-01-22] MEDS: Furosemide 40 MG TAB PO SCH (08:59)
[2018-01-22] MEDS: Carvedilol 6.25 MG TAB PO SCH ×3 (09:32→20:43)
[2018-01-22] MEDS: Aspirin 325 mg Enteric Coated Tablet PO SCH (09:32)
[2018-01-22] MEDS: Famotidine 20 MG TAB PO SCH ×2 (09:32→20:44)
[2018-01-22] MEDS: Lisinopril 5 MG TAB PO SCH ×2 (09:32→20:41)
[2018-01-22] MEDS: Insulin Regular 300 UNITS/3 ML VIAL SC PRN ×3 (11:50→20:48)
--- NOTE | 2018-01-22 15:00 | EKG ---
Test Reason : POST CABG Blood Pressure : / mmHG Vent. Rate : 076 BPM Atrial Rate : 076 BPM P-R Int : 166 ms QRS Dur : 072 ms QT Int : 434 ms P-R-T Axes : 076 047 -05 degrees QTc Int : 488 ms Normal sinus rhythm Low voltage QRS Cannot rule out Inferior infarct , age undetermined Abnormal ECG When compared with ECG of 18-JAN-2018 15:03, (Unconfirmed) QT has lengthened Confirmed by DANIELE RAMOS MD ([id number]) on 01/22/2018 3:00:20 PM Referred By: Moisés RODRIGUEZ Confirmed By:DANIELE RAMOS MD
[2018-01-22] MEDS: Fish Oil 1,000 MG CAP PO SCH (20:42)
[2018-01-22] MEDS: Atorvastatin Calcium 40 MG TAB PO SCH (20:43)
[2018-01-22] MEDS: FLUoxetine HCl 20 MG CAP PO SCH (20:44)
[2018-01-23 08:05] VITALS: BP 121/72; TEMP 99.3
[2018-01-23] MEDS: glipiZIDE 10 MG TAB PO SCH (08:06)
[2018-01-23] MEDS: Aspirin 325 mg Enteric Coated Tablet PO SCH (08:06)
[2018-01-23] MEDS: Carvedilol 6.25 MG TAB PO SCH (08:06)
[2018-01-23] MEDS: Famotidine 20 MG TAB PO SCH (08:07)
[2018-01-23] MEDS: Furosemide 40 MG TAB PO SCH (08:07)
[2018-01-23] MEDS: Lisinopril 5 MG TAB PO SCH (08:07)
[2018-01-23] MEDS: HYDROcodone/Acetaminophen 5/325 mg Tablet PO PRN (10:21)
--- NOTE | 2018-01-25 12:59 | DIS ---
DATE OF ADMISSION: 01/19/2018 DATE OF DISCHARGE: 01/23/2018 DIAGNOSIS: Coronary artery disease. PROCEDURES: 1. Coronary artery bypass grafting x3 - left internal mammary artery to LAD. 2. Saphenous vein to diagonal. 3. Saphenous vein to OM. DESCRIPTION OF HOSPITAL STAY: Ms. Patel was electively admitted for coronary artery bypass graftin . She had undergone stenting of the right coronary as rescue treatment for myocardial infarction. Postoperatively, she has done well. She has had no rhythm disturbances. At the time of discharge, s he is ambulatory, tolerating regular diet, having good bowel and bladder function. Incisions are mane an and dry without evidence of infection. DISCHARGE MEDICATIONS: Include, 1. Aspirin 325 mg every day. 2. Lipitor 40 mg at bedtime. 3. Coreg 6.25 mg b.i.d. 4. Lisinopril 5 mg every day. 5. Metformin 1000 mg b.i.d. 6. Glucotrol 10 mg b.i.d. Followup is with me in [address] Albert in a month.
== END 2018-01-23 12:52 | disposition home or self-care (01) | DRG 236 ==
LOC: SURG A 01-19 05:34 → CCU 01-19 10:47 → 2NO 01-21 19:56
PROVIDERS: ADMIT Thoracic Surgery (Cardiothoracic Vascular Surgery); ATTEND Thoracic Surgery (Cardiothoracic Vascular Surgery)
PROC: 021109W Bypass Coronary Artery, Two Arteries from Aorta with Autologous Venous Tissue, Open Approach (ICD-10-PCS; principal; 2018-01-19)
PROC: 02100Z9 Bypass Coronary Artery, One Artery from Left Internal Mammary, Open Approach (ICD-10-PCS; 2018-01-19)
PROC: 06BQ0ZZ Excision of Left Saphenous Vein, Open Approach (ICD-10-PCS; 2018-01-19)
PROC: 5A1221Z Performance of Cardiac Output, Continuous (ICD-10-PCS; 2018-01-19)
PROC: 30233N1 Transfusion of Nonautologous Red Blood Cells into Peripheral Vein, Percutaneous Approach (ICD-10-PCS; 2018-01-19)
DX: I25.110 Atherosclerotic heart disease of native coronary artery with unstable angina pectoris (principal); Z68.41 Body mass index [BMI] 40.0-44.9, adult; E11.9 Type 2 diabetes mellitus without complications; I25.2 Old myocardial infarction; Z95.5 Presence of coronary angioplasty implant and graft; I10 Essential (primary) hypertension; Z87.891 Personal history of nicotine dependence; E78.00 Pure hypercholesterolemia, unspecified; Z85.048 Personal history of other malignant neoplasm of rectum, rectosigmoid junction, and anus; Z92.3 Personal history of irradiation; Z92.21 Personal history of antineoplastic chemotherapy; E78.2 Mixed hyperlipidemia; E66.01 Morbid (severe) obesity due to excess calories
CPT/HCPCS: 36415; 36416; 36430; 71045; 80048; 80061; 82805; 85025; 85610; 85730; 86850; 86900; 86901; 93005; 93010; 93798; 94002; 94150; J1642; J1644; J1815; J1885; J2001; J2150; J2250; J2270; J2405; J2440; J2704; J2720; J3010; J3370; J3475; J3480; J7050; P9016; P9045; S0017; S0028

== ENCOUNTER 2022-08-06 21:10 | Inpatient (IN) | payer MEDICARE ==
[2022-08-06 21:16] VITALS: BMI 39.4
[2022-08-06] MEDS ORDERED: Dextrose 50% Abboject 50 ML SYRINGE SLOW IVP PRN (22:07)
[2022-08-06] MEDS ORDERED: Dextrose 5% in Water 1,000 ML IV PRN (22:07)
[2022-08-07] MEDS: cefTRIAXone\\ROCEPHIN 2 GM in Sodium Chloride 0.9% 100 ML IVPB SCH (05:37)
[2022-08-07] MEDS: HumaLOG 300 UNITS/3 ML VIAL SC PRN ×3 (06:09→18:06)
[2022-08-07 08:33] LABS: #Eosinphils 0.1 thou/uL (0.0-0.7); #Lymphocytes 0.9 thou/uL (1.20-3.40); #Monocytes 0.5 thou/uL (0.11-0.59); #Neutrophils 8.3 thou/uL (1.40-6.50); %Basophils 0.1 % (0.0-1.0); %Eosinophils 1.5 % (0.0-10.0); %Lymphocytes 9.4 % (21.0-51.0); %Monocytes 4.9 % (0.0-10.0); %Neutrophils 84.2 % (42.0-75.0); Hemoglobin 7.3 g/dL (12.0-16.0); Mean Corpuscular HGB CONC 31.4 g/dL (32.0-36.0); Platelet Count 324 10x3/uL (130-400); RBC Distribution Width 16.2 % (11.5-14.5); White Blood Cell (WBC) Count 9.8 10x3/uL (4.8-10.8)
[2022-08-07 08:58] LABS: ALT (SGPT) 43 U/L (8-55); AST (SGOT) 40 U/L (5-34); Albumin 2.7 g/dL (3.4-4.8); Alkaline Phosphatase 265 U/L (40-110); Anion Gap 16 mmol/L (10-20); BUN (Urea Nitrogen) 48 mg/dL (9.8-20.1); Bilirubin, Total 0.2 mg/dL (0.2-1.2); Calc. Creatinine Clearance 53 mL/min (70-130); Calcium 8.5 mg/dL (7.8-10.44); Carbon Dioxide 16 mmol/L (23-31); Chloride 108 mmol/L (98-107); Estimated GFR 33; Globulin 3.6 g/dL (2.4-3.5); Glucose 235 mg/dL (80-115); Iron 11 ug/dL (50-170); Iron Binding Capacity, Total 199 mcg/dL (265-497); Magnesium 1.6 mg/dL (1.6-2.6); Potassium 4.2 mmol/L (3.5-5.1); Protein, Total 6.3 g/dL (5.8-8.1); Sodium 136 mmol/L (136-145)
[2022-08-07] MEDS ORDERED: Lisinopril 10 MG TAB PO SCH (09:00)
[2022-08-07 09:13] LABS: Ferritin 227.59 ng/mL (10-291); Thyroid Stimulating Hormone 1.4191 uIU/mL (0.35-4.94)
[2022-08-07] MEDS: Carvedilol 6.25 MG TAB PO SCH ×3 (09:24→20:07)
[2022-08-07] MEDS ORDERED: Iron Sucrose Complex 200 MG in Sodium Chloride 0.9% 100 ML IVPB SCH (17:30)
[2022-08-07] MEDS ORDERED: Iron, Sodium Ferric Gluconate 250 MG in Sodium Chloride 0.9% 250 ML 250 ML IVPB SCH (17:45)
[2022-08-07] MEDS: Atorvastatin Calcium 40 MG TAB PO SCH (20:06)
[2022-08-07] MEDS: FLUoxetine HCl 20 MG CAP PO SCH (20:06)
[2022-08-07] MEDS ORDERED: Insulin Glargine 30 UNITS/0.3 ML VIAL SC SCH (21:00)
[2022-08-07] MEDS ORDERED: Gabapentin 100 MG CAP PO SCH (21:00)
[2022-08-07] MEDS: Gabapentin 100 MG CAP PO SCH (21:11)
[2022-08-08] MEDS: cefTRIAXone\\ROCEPHIN 2 GM in Sodium Chloride 0.9% 100 ML IVPB SCH (05:13)
[2022-08-08] MEDS: HumaLOG 300 UNITS/3 ML VIAL SC PRN ×3 (06:44→18:10)
[2022-08-08 07:05] LABS: #Eosinphils 0.3 thou/uL (0.0-0.7); #Lymphocytes 1.2 thou/uL (1.20-3.40); #Monocytes 0.5 thou/uL (0.11-0.59); #Neutrophils 6.1 thou/uL (1.40-6.50); %Eosinophils 3.2 % (0.0-10.0); %Monocytes 6.2 % (0.0-10.0); %Neutrophils 75.5 % (42.0-75.0); Hemoglobin 6.8 g/dL (12.0-16.0); Mean Corpuscular Hemoglobin 25.9 pg (27.0-31.0); Mean Corpuscular Volume 83.4 fl (78.0-98.0); Mean Platelet Volume 8.2 fL (7.4-10.4); Platelet Count 333 10x3/uL (130-400); RBC Distribution Width 16.3 % (11.5-14.5); Red Blood Cell (RBC) Count 2.61 mill/uL (4.20-5.40); White Blood Cell (WBC) Count 8.1 10x3/uL (4.8-10.8)
[2022-08-08 07:25] LABS: Anion Gap 13 mmol/L (10-20); BUN (Urea Nitrogen) 39 mg/dL (9.8-20.1); Calc. Creatinine Clearance 62 mL/min (70-130); Calcium 8.7 mg/dL (7.8-10.44); Carbon Dioxide 20 mmol/L (23-31); Chloride 110 mmol/L (98-107); Estimated GFR 41; Glucose 156 mg/dL (80-115); Potassium 4.3 mmol/L (3.5-5.1); Sodium 139 mmol/L (136-145)
[2022-08-08] MEDS: Carvedilol 6.25 MG TAB PO SCH ×3 (08:37→22:05)
[2022-08-08] MEDS: Gabapentin 100 MG CAP PO SCH ×2 (08:56→22:12)
[2022-08-08] MEDS: Ferrous Sulfate 325 MG TAB PO SCH (08:58)
[2022-08-08] MEDS ORDERED: ISOVUE-370 76%-LOCM 1 ML ONE (14:46)
[2022-08-08] MEDS: Atorvastatin Calcium 40 MG TAB PO SCH (22:03)
[2022-08-08] MEDS: FLUoxetine HCl 20 MG CAP PO SCH (22:04)
[2022-08-08] MEDS: Insulin Glargine 30 UNITS/0.3 ML VIAL SC SCH (22:14)
[2022-08-09] MEDS: cefTRIAXone\\ROCEPHIN 2 GM in Sodium Chloride 0.9% 100 ML IVPB SCH (06:19)
[2022-08-09 06:29] LABS: #Eosinphils 0.3 thou/uL (0.0-0.7); #Lymphocytes 1.3 thou/uL (1.20-3.40); #Monocytes 0.5 thou/uL (0.11-0.59); #Neutrophils 6.6 thou/uL (1.40-6.50); %Basophils 0.2 % (0.0-1.0); %Eosinophils 3.9 % (0.0-10.0); %Lymphocytes 14.7 % (21.0-51.0); %Monocytes 5.7 % (0.0-10.0); %Neutrophils 75.6 % (42.0-75.0); Mean Corpuscular HGB CONC 31.4 g/dL (32.0-36.0); Platelet Count 321 10x3/uL (130-400); RBC Distribution Width 15.8 % (11.5-14.5); Red Blood Cell (RBC) Count 3.08 mill/uL (4.20-5.40); White Blood Cell (WBC) Count 8.8 10x3/uL (4.8-10.8)
[2022-08-09 06:53] LABS: Anion Gap 14 mmol/L (10-20); BUN (Urea Nitrogen) 28 mg/dL (9.8-20.1); Calc. Creatinine Clearance 74 mL/min (70-130); Calcium 8.8 mg/dL (7.8-10.44); Carbon Dioxide 19 mmol/L (23-31); Chloride 109 mmol/L (98-107); Estimated GFR 50; Glucose 229 mg/dL (80-115); Potassium 4.3 mmol/L (3.5-5.1); Sodium 138 mmol/L (136-145)
[2022-08-09] MEDS: Carvedilol 6.25 MG TAB PO SCH ×3 (08:50→21:52)
[2022-08-09] MEDS: Ferrous Sulfate 325 MG TAB PO SCH (08:50)
[2022-08-09] MEDS: Gabapentin 100 MG CAP PO SCH ×2 (08:50→21:35)
[2022-08-09] MEDS: HumaLOG 300 UNITS/3 ML VIAL SC PRN ×3 (12:18→21:38)
[2022-08-09] MEDS: Atorvastatin Calcium 40 MG TAB PO SCH (21:36)
[2022-08-09] MEDS: FLUoxetine HCl 20 MG CAP PO SCH (21:36)
[2022-08-09] MEDS: Insulin Glargine 30 UNITS/0.3 ML VIAL SC SCH (21:52)
[2022-08-10] MEDS: cefTRIAXone\\ROCEPHIN 2 GM in Sodium Chloride 0.9% 100 ML IVPB SCH (05:42)
[2022-08-10 08:42] LABS: #Eosinphils 0.4 thou/uL (0.0-0.7); #Lymphocytes 1.9 thou/uL (1.20-3.40); #Monocytes 0.6 thou/uL (0.11-0.59); #Neutrophils 6.4 thou/uL (1.40-6.50); %Basophils 0.5 % (0.0-1.0); %Eosinophils 4.2 % (0.0-10.0); %Lymphocytes 20.5 % (21.0-51.0); %Monocytes 6.5 % (0.0-10.0); %Neutrophils 68.4 % (42.0-75.0); Hemoglobin 8.4 g/dL (12.0-16.0); Mean Corpuscular HGB CONC 31.3 g/dL (32.0-36.0); Mean Corpuscular Hemoglobin 26.2 pg (27.0-31.0); Mean Corpuscular Volume 83.8 fl (78.0-98.0); Mean Platelet Volume 8.3 fL (7.4-10.4); Platelet Count 290 10x3/uL (130-400); Red Blood Cell (RBC) Count 3.21 mill/uL (4.20-5.40); White Blood Cell (WBC) Count 9.4 10x3/uL (4.8-10.8)
[2022-08-10 09:01] LABS: Anion Gap 12 mmol/L (10-20); BUN (Urea Nitrogen) 23 mg/dL (9.8-20.1); Calc. Creatinine Clearance 75 mL/min (70-130); Calcium 9.1 mg/dL (7.8-10.44); Carbon Dioxide 23 mmol/L (23-31); Chloride 110 mmol/L (98-107); Estimated GFR 51; Glucose 135 mg/dL (80-115); Potassium 4.2 mmol/L (3.5-5.1); Sodium 141 mmol/L (136-145)
[2022-08-10] MEDS: Carvedilol 6.25 MG TAB PO SCH ×3 (09:14→20:38)
[2022-08-10] MEDS: Gabapentin 100 MG CAP PO SCH ×2 (09:14→20:37)
[2022-08-10] MEDS: Ferrous Sulfate 325 MG TAB PO SCH (09:15)
[2022-08-10] MEDS: HumaLOG 300 UNITS/3 ML VIAL SC PRN (16:29)
[2022-08-10] MEDS: Atorvastatin Calcium 40 MG TAB PO SCH (20:37)
[2022-08-10] MEDS: FLUoxetine HCl 20 MG CAP PO SCH (20:37)
[2022-08-10] MEDS: Insulin Glargine 30 UNITS/0.3 ML VIAL SC SCH (21:34)
[2022-08-11] MEDS: cefTRIAXone\\ROCEPHIN 2 GM in Sodium Chloride 0.9% 100 ML IVPB SCH (05:18)
[2022-08-11 07:55] LABS: Hemoglobin 8.3 g/dL (12.0-16.0)
[2022-08-11 08:15] LABS: Anion Gap 14 mmol/L (10-20); BUN (Urea Nitrogen) 21 mg/dL (9.8-20.1); Calc. Creatinine Clearance 80 mL/min (70-130); Calcium 8.7 mg/dL (7.8-10.44); Carbon Dioxide 21 mmol/L (23-31); Chloride 109 mmol/L (98-107); Estimated GFR 55; Glucose 197 mg/dL (80-115); Potassium 4.2 mmol/L (3.5-5.1); Sodium 140 mmol/L (136-145)
[2022-08-11] MEDS: Gabapentin 100 MG CAP PO SCH ×2 (08:31→21:33)
[2022-08-11] MEDS: Carvedilol 6.25 MG TAB PO SCH ×3 (08:32→21:32)
[2022-08-11] MEDS: Ferrous Sulfate 325 MG TAB PO SCH (08:32)
[2022-08-11] MEDS ORDERED: Fentanyl 250 MCG/5 ML VIAL ONE (13:12)
[2022-08-11] MEDS ORDERED: SUGAMMADEX SODIUM 200 MG/2 ML VIAL ONE (13:12)
[2022-08-11] MEDS ORDERED: Lidocaine 1% PF 5 ML VIAL ONE (13:32)
[2022-08-11] MEDS ORDERED: Glycopyrrolate 0.2 MG/ML 5 ML SYRINGE ONE (13:32)
[2022-08-11] MEDS ORDERED: PROPOFOL 200 MG/20 ML VIAL ONE (13:32)
[2022-08-11] MEDS ORDERED: Dexamethasone 20 MG/5 ML VIAL ONE (13:32)
[2022-08-11] MEDS ORDERED: NEOSTIGMINE 3 MG/3 ML SYR 3 MG/3 ML SYRINGE ONE (13:32)
[2022-08-11] MEDS ORDERED: Ondansetron PF 4 MG/2 ML Vial ONE (13:32)
[2022-08-11] MEDS ORDERED: Rocuronium Bromide 10 MG/ML (10ML VIAL) ONE (13:32)
[2022-08-11] MEDS ORDERED: Senokot 8.6 MG TAB PO PRN (13:43)
[2022-08-11] MEDS ORDERED: Polyethylene Glycol 3350 17 GM Packet PO PRN (13:43)
[2022-08-11] MEDS ORDERED: Ondansetron HCl/PF 4 MG/2 ML Vial IVP PRN (14:29)
[2022-08-11] MEDS ORDERED: Promethazine HCl 25 MG/ML VIAL IM PRN (14:29)
[2022-08-11] MEDS ORDERED: Acetaminophen 325 MG TAB PO PRN (16:46)
[2022-08-11] MEDS ORDERED: Morphine 2 MG/ML VIAL SLOW IVP SCH (17:00)
[2022-08-11] MEDS ORDERED: oxyCODONE 5 MG TAB PO PRN (17:00)
[2022-08-11] MEDS: FLUoxetine HCl 20 MG CAP PO SCH (21:32)
[2022-08-11] MEDS: Atorvastatin Calcium 40 MG TAB PO SCH (21:32)
[2022-08-11] MEDS: Insulin Glargine 30 UNITS/0.3 ML VIAL SC SCH (21:33)
[2022-08-11] MEDS: HumaLOG 300 UNITS/3 ML VIAL SC PRN (21:34)
[2022-08-12] MEDS: cefTRIAXone\\ROCEPHIN 2 GM in Sodium Chloride 0.9% 100 ML IVPB SCH (05:31)
[2022-08-12] MEDS: HumaLOG 300 UNITS/3 ML VIAL SC PRN ×4 (05:43→20:55)
[2022-08-12 07:57] LABS: Hemoglobin 8.4 g/dL (12.0-16.0)
[2022-08-12] MEDS: Ferrous Sulfate 325 MG TAB PO SCH (08:13)
[2022-08-12] MEDS: Gabapentin 100 MG CAP PO SCH ×2 (08:14→20:53)
[2022-08-12 08:16] LABS: Anion Gap 13 mmol/L (10-20); BUN (Urea Nitrogen) 22 mg/dL (9.8-20.1); Calc. Creatinine Clearance 70 mL/min (70-130); Calcium 8.7 mg/dL (7.8-10.44); Carbon Dioxide 24 mmol/L (23-31); Chloride 107 mmol/L (98-107); Estimated GFR 47; Glucose 224 mg/dL (80-115); Magnesium 1.5 mg/dL (1.6-2.6); Potassium 5.2 mmol/L (3.5-5.1); Sodium 139 mmol/L (136-145)
[2022-08-12] MEDS: Carvedilol 6.25 MG TAB PO SCH ×3 (08:20→20:53)
[2022-08-12] MEDS ORDERED: Magnesium 2 GM/50 ML(in water) 2 GM in Premix Bag 1 BAG IVPB SCH (09:45)
[2022-08-12 14:19] LABS: Anion Gap 13 mmol/L (10-20); BUN (Urea Nitrogen) 24 mg/dL (9.8-20.1); Calc. Creatinine Clearance 67 mL/min (70-130); Calcium 8.5 mg/dL (7.8-10.44); Carbon Dioxide 22 mmol/L (23-31); Chloride 106 mmol/L (98-107); Estimated GFR 44; Glucose 308 mg/dL (80-115); Magnesium 1.9 mg/dL (1.6-2.6); Potassium 4.5 mmol/L (3.5-5.1); Sodium 136 mmol/L (136-145)
[2022-08-12] MEDS: Lactated Ringer's 1,000 ML IV SCH ×2 (15:48→20:55)
[2022-08-12] MEDS: FLUoxetine HCl 20 MG CAP PO SCH (20:53)
[2022-08-12] MEDS: Atorvastatin Calcium 40 MG TAB PO SCH (20:53)
[2022-08-12] MEDS: Insulin Glargine 30 UNITS/0.3 ML VIAL SC SCH (20:54)
[2022-08-13] MEDS: cefTRIAXone\\ROCEPHIN 2 GM in Sodium Chloride 0.9% 100 ML IVPB SCH (05:43)
[2022-08-13 07:49] LABS: #Eosinphils 0.2 thou/uL (0.0-0.7); #Lymphocytes 1.8 thou/uL (1.20-3.40); #Monocytes 0.4 thou/uL (0.11-0.59); #Neutrophils 4.8 thou/uL (1.40-6.50); %Basophils 0.3 % (0.0-1.0); %Eosinophils 3.2 % (0.0-10.0); %Lymphocytes 24.9 % (21.0-51.0); %Monocytes 5.1 % (0.0-10.0); %Neutrophils 66.5 % (42.0-75.0); Hemoglobin 8.3 g/dL (12.0-16.0); Mean Corpuscular HGB CONC 30.8 g/dL (32.0-36.0); Mean Corpuscular Hemoglobin 26.1 pg (27.0-31.0); Mean Corpuscular Volume 84.9 fl (78.0-98.0); Mean Platelet Volume 8.1 fL (7.4-10.4); Platelet Count 351 10x3/uL (130-400); RBC Distribution Width 17.2 % (11.5-14.5); Red Blood Cell (RBC) Count 3.17 mill/uL (4.20-5.40); White Blood Cell (WBC) Count 7.2 10x3/uL (4.8-10.8)
[2022-08-13 08:07] LABS: Anion Gap 13 mmol/L (10-20); BUN (Urea Nitrogen) 23 mg/dL (9.8-20.1); Calc. Creatinine Clearance 77 mL/min (70-130); Calcium 8.4 mg/dL (7.8-10.44); Carbon Dioxide 24 mmol/L (23-31); Chloride 110 mmol/L (98-107); Estimated GFR 53; Glucose 67 mg/dL (80-115); Magnesium 1.8 mg/dL (1.6-2.6); Potassium 4.3 mmol/L (3.5-5.1); Sodium 143 mmol/L (136-145)
[2022-08-13] MEDS: Gabapentin 100 MG CAP PO SCH (09:02)
[2022-08-13] MEDS: Ferrous Sulfate 325 MG TAB PO SCH (09:03)
[2022-08-13] MEDS: Carvedilol 6.25 MG TAB PO SCH ×2 (09:06→17:11)
[2022-08-13 16:42] VITALS: BP 135/78; TEMP 97.5
== END 2022-08-13 16:26 | disposition home or self-care (01) | DRG 669 ==
LOC: T4-B 21:10 → OBSVTOIN 22:04
PROVIDERS: ADMIT Internal Medicine; ATTEND Internal Medicine
PROC: 30233N1 Transfusion of Nonautologous Red Blood Cells into Peripheral Vein, Percutaneous Approach (ICD-10-PCS; 2022-08-06)
PROC: 3E1K88Z Irrigation of Genitourinary Tract using Irrigating Substance, Via Natural or Artificial Opening Endoscopic (ICD-10-PCS; 2022-08-09)
PROC: 0TBB8ZZ Excision of Bladder, Via Natural or Artificial Opening Endoscopic (ICD-10-PCS; principal; 2022-08-12)
DX: N30.41 Irradiation cystitis with hematuria (principal); N17.9 Acute kidney failure, unspecified; Z20.822 Contact with and (suspected) exposure to COVID-19; E11.40 Type 2 diabetes mellitus with diabetic neuropathy, unspecified; I25.10 Atherosclerotic heart disease of native coronary artery without angina pectoris; I50.9 Heart failure, unspecified; M79.7 Fibromyalgia; B96.20 Unspecified Escherichia coli [E. coli] as the cause of diseases classified elsewhere; D50.9 Iron deficiency anemia, unspecified; R79.89 Other specified abnormal findings of blood chemistry; E83.42 Hypomagnesemia; Y84.2 Radiological procedure and radiotherapy as the cause of abnormal reaction of the patient, or of later complication, without mention of misadventure at the time of the procedure; Z88.1 Allergy status to other antibiotic agents; Z85.048 Personal history of other malignant neoplasm of rectum, rectosigmoid junction, and anus; Z79.899 Other long term (current) drug therapy; Z79.84 Long term (current) use of oral hypoglycemic drugs; Z87.891 Personal history of nicotine dependence; Z95.1 Presence of aortocoronary bypass graft; Z90.49 Acquired absence of other specified parts of digestive tract; Z90.89 Acquired absence of other organs; Z98.51 Tubal ligation status
CPT/HCPCS: 36415; 36416; 36430; 71275; 80048; 80053; 82728; 83036; 83540; 83550; 83735; 84443; 85014; 85018; 85025; 85046; 86850; 86900; 86901; 88307; 88342; 93970; J0696; J1100; J1815; J2272; J2405; J2704; J2916; J3010; J3475; J3490; J7050; J7120; P9016; Q9966; U0003; U0005